=== PATIENT | female | born 1960 | race Caucasian/White ===

== ENCOUNTER 2017-09-08 18:10 | Emergency (ER) | payer OTHER ==
[~2017-09-08] VITALS: Ht 175.3 cm; Wt 122.5 kg
[~2017-09-08 18:10] MED LIST: ACYC800 PO; ALBU90OI INH; ALBU90OI6 INH; AMOCLA875 PO; AMOX500 PO; ANTOXYBENA OT; ATOR10; ATOR20 PO; AZIT250 PO; CLON.5; CLON.5 PO; CYCL10 PO; DEXGUASY PO; FLUO10; FLUO20 PO; HYDACE5 PO; HYDACE5325 PO; IBUP800 PO; LEVSOD100 PO; LEVSOD125 PO; LEVSOD75 PO; NAPR500 PO; NEOPOLHCSU OT; OXYACE5T PO; PARO20 PO; PENVK500 PO; Prozac40 MG PO; RXHYDACE PO; SERT25; SIMV5 PO; SIMV80 PO; THYROID MED
[2017-09-08 18:49] LABS: BASOPHILS ABSOLUTE AUTO 0.06 K/mm3 (0.00-0.23); BASOPHILS PERCENT AUTO 1 % (0-2); EOSINOPHILS ABSOLUTE AUTO 0.22 K/mm3 (0.00-0.68); EOSINOPHILS PERCENT AUTO 2 % (0-6); Hemoglobin 13.9 g/dL (11.5-16.0); IMMATURE GRAN ABSOLUTE AUTO 0.03 K/mm3 (0.00-0.10); IMMATURE GRAN PERCENT AUTO 0 % (0-1); LYMPHOCYTES ABSOLUTE AUTO 2.88 K/mm3 (0.84-5.20); LYMPHOCYTES PERCENT AUTO 29 % (21-46); MONOCYTES ABSOLUTE AUTO 0.42 K/mm3 (0.16-1.47); MONOCYTES PERCENT AUTO 4 % (4-13); Mean Corpuscular HGB 29.2 pg (26.0-34.0); Mean Corpuscular HGB Conc 33.1 g/dL (31.5-36.5); Mean Corpuscular Volume 88 fL (80-100); Mean Platelet Volume 9.9 fL (9.1-12.4); NEUTROPHILS ABSOLUTE AUTO 6.44 K/mm3 (1.96-9.15); NEUTROPHILS PERCENT AUTO 64 % (41-73); Platelet Count 347 K/mm3 (150-400); RDW Coefficient Variation 13.7 % (11.7-14.2); RDW Standard Deviation 44.5 fL (35.1-46.3); Red Blood Cell Count 4.76 M/mm3 (3.80-5.20); White Blood Cell Count 10.05 K/mm3 (4.00-11.30)
[2017-09-08 19:08] LABS: Troponin I <0.015 ng/mL (0.000-0.040)
[2017-09-08 19:18] LABS: Alanine Aminotransfer (ALT/SGP 25 U/L (12-78); Albumin/Globulin Ratio 0.7 (0.8-1.8); Alk Phos 79 U/L (50-136); Anion Gap 6 mmol/L (6-16); Aspartate Aminotrans (AST/SGOT 18 U/L (12-37); Bilirubin, Total 0.3 mg/dL (0.1-1.0); Blood Urea Nitrogen 12 mg/dL (8-24); Bun/Creatinine Ratio 12.6 (12.0-20.0); CO2, Blood 27 mmol/L (21-32); Calcium, Blood 9.1 mg/dL (8.5-10.1); Chloride, Blood 106 mmol/L (98-108); Creatinine, Blood 0.96 mg/dL (0.40-1.00); Globulin, Blood 4.6 g/dL (2.2-4.0); Glomerular Filtration Rate >60 (60-); Glucose, Blood 105 mg/dL (70-99); Potassium, Blood 3.6 mmol/L (3.5-5.5); Sodium, Blood 139 mmol/L (136-145); Total Protein, Blood 7.6 g/dL (6.4-8.2)
== END 2017-09-08 20:00 | disposition home or self-care (01) ==
LOC: ER 18:10
DX: R07.9 Chest pain, unspecified (principal); F17.210 Nicotine dependence, cigarettes, uncomplicated
CPT/HCPCS: 36415; 71046; 80053; 84484; 85025; 93005; 93010; 99283

== ENCOUNTER → 2019-05-20 | Outpatient (CLI) | payer OTHER | END | disposition home or self-care (01) | LOC: LAB SHORT 11:31 → PLD 11:31 | DX: C44.41 Basal cell carcinoma of skin of scalp and neck (principal); D22.4 Melanocytic nevi of scalp and neck; L98.9 Disorder of the skin and subcutaneous tissue, unspecified | CPT/HCPCS: 88305; 88313 ==

== ENCOUNTER 2021-10-01 18:32 | Emergency (ER) | payer OTHER ==
[~2021-10-01] VITALS: Ht 175.3 cm; Wt 129.3 kg
[2021-10-01 19:14] LABS: BASOPHILS ABSOLUTE AUTO 0.09 K/mm3 (0.00-0.23); BASOPHILS PERCENT AUTO 1 % (0-2); EOSINOPHILS ABSOLUTE AUTO 0.29 K/mm3 (0.00-0.68); EOSINOPHILS PERCENT AUTO 4 % (0-6); Hematocrit 46.5 % (33.0-51.0); IMMATURE GRAN ABSOLUTE AUTO 0.03 K/mm3 (0.00-0.10); IMMATURE GRAN PERCENT AUTO 0 % (0-1); LYMPHOCYTES ABSOLUTE AUTO 2.88 K/mm3 (0.84-5.20); LYMPHOCYTES PERCENT AUTO 35 % (21-46); MONOCYTES ABSOLUTE AUTO 0.48 K/mm3 (0.16-1.47); MONOCYTES PERCENT AUTO 6 % (4-13); Mean Corpuscular HGB 29.8 pg (26.0-34.0); Mean Corpuscular HGB Conc 32.3 g/dL (31.5-36.5); Mean Corpuscular Volume 92 fL (80-100); Mean Platelet Volume 9.6 fL (9.1-12.4); NEUTROPHILS PERCENT AUTO 54 % (41-73); NRBC ABSOLUTE 0.03 K/mm3 (0.00-0.02); NRBC Auto 0.4 /100 WBC (0.0-0.2); Platelet Count 350 K/mm3 (150-400); RDW Coefficient Variation 13.1 % (11.7-14.2); Red Blood Cell Count 5.04 M/mm3 (3.80-5.20); White Blood Cell Count 8.27 K/mm3 (4.00-11.30)
[2021-10-01 19:42] LABS: Albumin, Blood 2.7 g/dL (3.4-5.0); Albumin/Globulin Ratio 0.7 (0.8-1.8); Bilirubin, Total 0.3 mg/dL (0.1-1.0); Calcium, Blood 8.8 mg/dL (8.5-10.1); Creatinine, Blood 0.87 mg/dL (0.40-1.00); Globulin, Blood 4.1 g/dL (2.2-4.0); Total Protein, Blood 6.8 g/dL (6.4-8.2)
== END 2021-10-01 23:27 | disposition home or self-care (01) ==
LOC: ER 18:32
PROVIDERS: Physician Assistant
DX: H53.9 Unspecified visual disturbance (principal); H74.8X2 Other specified disorders of left middle ear and mastoid; E78.5 Hyperlipidemia, unspecified; F17.210 Nicotine dependence, cigarettes, uncomplicated; Z79.899 Other long term (current) drug therapy; Z88.8 Allergy status to other drugs, medicaments and biological substances; Z88.1 Allergy status to other antibiotic agents
CPT/HCPCS: 36415; 70450; 80053; 85025; 85651

== ENCOUNTER 2022-05-13 19:17 | Emergency (ER) | payer OTHER ==
[~2022-05-13] VITALS: Ht 175.3 cm; Wt 117.9 kg
== END 2022-05-13 21:30 | disposition home or self-care (01) ==
LOC: ER 19:17
DX: S50.11XA Contusion of right forearm, initial encounter (principal); E78.5 Hyperlipidemia, unspecified; F17.210 Nicotine dependence, cigarettes, uncomplicated; W01.0XXA Fall on same level from slipping, tripping and stumbling without subsequent striking against object, initial encounter; Z79.890 Hormone replacement therapy; Z79.899 Other long term (current) drug therapy; Z88.8 Allergy status to other drugs, medicaments and biological substances
CPT/HCPCS: 73090

== ENCOUNTER 2022-12-16 17:33 | Emergency (ER) | payer OTHER ==
[~2022-12-16] VITALS: Ht 175.3 cm; Wt 127.0 kg
[2022-12-16 17:45] VITALS: BP 160/78
[2022-12-16] MEDS ORDERED: CODACE30 PO (18:58)
== END 2022-12-16 19:28 | disposition home or self-care (01) ==
LOC: ER 17:33
DX: S82.851A Displaced trimalleolar fracture of right lower leg, initial encounter for closed fracture (principal); W10.8XXA Fall (on) (from) other stairs and steps, initial encounter; Z88.8 Allergy status to other drugs, medicaments and biological substances; Z88.1 Allergy status to other antibiotic agents; Z79.899 Other long term (current) drug therapy; E78.5 Hyperlipidemia, unspecified; F17.210 Nicotine dependence, cigarettes, uncomplicated
CPT/HCPCS: 73590; 73610; A9270; J1885

== ENCOUNTER 2022-12-20 09:58 | Day surgery (SDC) | payer OTHER ==
[~2022-12-20] VITALS: Ht 175.3 cm; Wt 127.2 kg
[~2022-12-20 09:58] MED LIST changes: +CODACE30 PO
[2022-12-20] MEDS ORDERED: Crestor40 MG ×2 (10:52→10:53)
[2022-12-20] MEDS ORDERED: VITAMIN D310 MC4 (10:53)
[2022-12-20] MEDS ORDERED: OMEP20ER (10:54)
--- NOTE | 2022-12-20 12:58 | NUR ---
12/20/22 1258 Brice Hutton POPITEAL BLOCK COMPLETE IN OR BY DR OROURKE PRIOR TO INTUBATION. PT STATES SHE TOLERATED WELL. VSS. TIME OUT COMPLETE, SITE CHECK. ROPIVICAINE 0.5% 30MLS MIXED & VERIFIED W/ EPI 0.15 ML (1MG/ML) PER ORDRE TO MAKE ROPIVACAINE 0.5% 1:200,000 FOR INJECTION AT [facility] BY DR LAZARO.
--- NOTE | 2022-12-20 14:24 | NUR ---
12/20/22 1424 Adrienne Weston PT INADVERTENTLY PULLED OUT IV, CATH INTACT, COVERED WITH GAUZE AND COBAN. PT TOLERATED EATING AND DRINKING WITH NO ISSUES. NO NAUSEA.
[2022-12-20 14:54] VITALS: BP 133/68
== END 2022-12-20 14:55 | disposition home or self-care (01) ==
LOC: ORSCSDS 09:58
PROVIDERS: Podiatrist Foot & Ankle Surgery
PROC: 0QSJ04Z Reposition Right Fibula with Internal Fixation Device, Open Approach (ICD-10-PCS; principal; 2022-12-20 11:15)
PROC: 0QSG04Z Reposition Right Tibia with Internal Fixation Device, Open Approach (ICD-10-PCS; principal; 2022-12-20 11:15)
DX: S82.851A Displaced trimalleolar fracture of right lower leg, initial encounter for closed fracture (principal); W10.9XXA Fall (on) (from) unspecified stairs and steps, initial encounter; E66.01 Morbid (severe) obesity due to excess calories; Z68.41 Body mass index [BMI] 40.0-44.9, adult; E78.5 Hyperlipidemia, unspecified; E03.9 Hypothyroidism, unspecified; K21.9 Gastro-esophageal reflux disease without esophagitis; F41.9 Anxiety disorder, unspecified; F32.A Depression, unspecified; Z79.899 Other long term (current) drug therapy; G47.33 Obstructive sleep apnea (adult) (pediatric); F17.210 Nicotine dependence, cigarettes, uncomplicated
CPT/HCPCS: A9270; C1713; C1769; J0171; J0690; J1100; J1885; J2250; J2405; J2704; J2795; J3010; J7120

== ENCOUNTER 2022-12-24 20:00 | Emergency (ER) | payer OTHER ==
[~2022-12-24] VITALS: Ht 175.3 cm; Wt 127.0 kg
[~2022-12-24 20:00] MED LIST changes: +Crestor40 MG; +OMEP20ER; +VITAMIN D310 MC4
[2022-12-24 21:05] LABS: BASOPHILS ABSOLUTE AUTO 0.05 K/mm3 (0.00-0.23); BASOPHILS PERCENT AUTO 1 % (0-2); EOSINOPHILS ABSOLUTE AUTO 0.49 K/mm3 (0.00-0.68); EOSINOPHILS PERCENT AUTO 6 % (0-6); Hematocrit 38.6 % (33.0-51.0); Hemoglobin 12.8 g/dL (11.5-16.0); IMMATURE GRAN ABSOLUTE AUTO 0.04 K/mm3 (0.00-0.10); IMMATURE GRAN PERCENT AUTO 1 % (0-1); LYMPHOCYTES ABSOLUTE AUTO 2.01 K/mm3 (0.84-5.20); LYMPHOCYTES PERCENT AUTO 23 % (21-46); MONOCYTES ABSOLUTE AUTO 0.61 K/mm3 (0.16-1.47); MONOCYTES PERCENT AUTO 7 % (4-13); Mean Corpuscular HGB 28.1 pg (26.0-34.0); Mean Corpuscular HGB Conc 33.2 g/dL (31.5-36.5); Mean Corpuscular Volume 85 fL (80-100); Mean Platelet Volume 9.6 fL (9.1-12.4); NEUTROPHILS ABSOLUTE AUTO 5.65 K/mm3 (1.96-9.15); NEUTROPHILS PERCENT AUTO 64 % (41-73); Platelet Count 425 K/mm3 (150-400); RDW Coefficient Variation 13.4 % (11.7-14.2); RDW Standard Deviation 42.1 fL (35.1-46.3); Red Blood Cell Count 4.55 M/mm3 (3.80-5.20); White Blood Cell Count 8.85 K/mm3 (4.00-11.30)
[2022-12-24 21:27] LABS: Albumin, Blood 2.4 g/dL (3.4-5.0); Albumin/Globulin Ratio 0.5 (0.8-1.8); Bilirubin, Total 0.2 mg/dL (0.1-1.0); Bun/Creatinine Ratio 14.1 (12.0-20.0); Calcium, Blood 8.7 mg/dL (8.5-10.1); Globulin, Blood 4.8 g/dL (2.2-4.0); Total Protein, Blood 7.2 g/dL (6.4-8.2)
[2022-12-24] MEDS ORDERED: ALBU90OI INH (21:46)
[2022-12-24] MEDS ORDERED: Prednisone20 MG PO (21:46)
[2022-12-24 22:00] LABS: Influenza A, PCR NEGATIVE (NEGATIVE); Influenza B, PCR NEGATIVE (NEGATIVE); Resp Syncytial Virus, PCR NEGATIVE (NEGATIVE); SARS-Cov-2 (COVID-19) PCR, MMC NEGATIVE (NEGATIVE)
[2022-12-24 23:00] VITALS: BP 155/97
== END 2022-12-24 23:03 | disposition home or self-care (01) ==
LOC: ER 20:00
PROVIDERS: Emergency Medicine
DX: R06.02 Shortness of breath (principal); R05.9 Cough, unspecified; I51.7 Cardiomegaly; R91.8 Other nonspecific abnormal finding of lung field; E78.5 Hyperlipidemia, unspecified; F17.200 Nicotine dependence, unspecified, uncomplicated; Z20.822 Contact with and (suspected) exposure to COVID-19; Z88.1 Allergy status to other antibiotic agents; Z88.8 Allergy status to other drugs, medicaments and biological substances; Z79.899 Other long term (current) drug therapy
CPT/HCPCS: 0241U; 71046; 71260; 80053; 84484; 85025; 85379; 93005; 93010; 94640; 94664; 99285-25; Q9967

== ENCOUNTER → 2024-09-09 | Outpatient (CLI) | payer OTHER ==
[~2024-09-09] MED LIST changes: +Prednisone20 MG PO
== END | disposition home or self-care (01) ==
LOC: LAB 15:54 → LAB SHORT 15:54
DX: N39.0 Urinary tract infection, site not specified (principal)
CPT/HCPCS: 87086

== ENCOUNTER 2025-04-24 14:28 | Inpatient (IN) | payer OTHER ==
[~2025-04-24] VITALS: Ht 172.7 cm; Wt 111.6 kg
[~2025-04-24 14:28] MED LIST changes: -VITAMIN D310 MC4; +VITAMIN D310 MC4 PO
[2025-04-24] MEDS ORDERED: Ipratropium/Albuterol SulF 2.5-0.5MG/3 ML Amp INH ONE (14:55)
[2025-04-24 15:32] LABS: BASOPHILS ABSOLUTE AUTO 0.03 K/mm3 (0.00-0.23); BASOPHILS PERCENT AUTO 0 % (0-2); EOSINOPHILS ABSOLUTE AUTO 0.04 K/mm3 (0.00-0.68); EOSINOPHILS PERCENT AUTO 1 % (0-6); Hematocrit 36.9 % (33.0-51.0); Hemoglobin 11.7 g/dL (11.5-16.0); IMMATURE GRAN ABSOLUTE AUTO 0.04 K/mm3 (0.00-0.10); IMMATURE GRAN PERCENT AUTO 1 % (0-1); LYMPHOCYTES ABSOLUTE AUTO 0.79 K/mm3 (0.84-5.20); LYMPHOCYTES PERCENT AUTO 10 % (21-46); MONOCYTES ABSOLUTE AUTO 0.23 K/mm3 (0.16-1.47); MONOCYTES PERCENT AUTO 3 % (4-13); Mean Corpuscular HGB Conc 31.7 g/dL (31.5-36.5); Mean Corpuscular Volume 81 fL (80-100); NEUTROPHILS ABSOLUTE AUTO 7.02 K/mm3 (1.96-9.15); NEUTROPHILS PERCENT AUTO 86 % (41-73); NRBC ABSOLUTE 0.00 K/mm3 (0.00-0.02); NRBC Auto 0.0 /100 WBC (0.0-0.2); Platelet Count 370 K/mm3 (150-400); RDW Coefficient Variation 13.8 % (11.7-14.2); RDW Standard Deviation 40.7 fL (35.1-46.3)
[2025-04-24 15:35] LABS: pH Blood Arterial 7.38 (7.35-7.45)
[2025-04-24 15:40] LABS: Anion Gap 6.0 mmol/L (3-11); Blood Urea Nitrogen 13.0 mg/dL (8-24); CO2, Blood 29.0 mmol/L (21-32); Calcium, Blood 8.9 mg/dL (8.5-10.1); Chloride, Blood 103.0 mmol/L (98-108); Creatinine, Blood 0.81 mg/dL (0.40-1.00); Glucose, Blood 126.0 mg/dL (70-99); Potassium, Blood 4.2 mmol/L (3.5-5.5); Sodium, Blood 134.0 mmol/L (136-145)
[2025-04-24 15:54] LABS: Influenza A, PCR NEGATIVE (NEGATIVE); Influenza B, PCR NEGATIVE (NEGATIVE); Resp Syncytial Virus, PCR NEGATIVE (NEGATIVE); SARS-Cov-2 (COVID-19) PCR, MMC NEGATIVE (NEGATIVE)
[2025-04-24] MEDS ORDERED: Ondansetron HCl 2 MG / ML 2ML Vial IV PRN (17:00)
[2025-04-24] MEDS ORDERED: FLU VACC TS2025-26(6MOS UP)/PF 45 MCG/0.5 ML SYRINGE IM SCH (17:00)
[2025-04-24] MEDS ORDERED: Ipratropium/Albuterol SulF 2.5-0.5MG/3 ML Amp INH PRN (17:00)
[2025-04-24] MEDS ORDERED: CefTRIAXone Sodium 1,000 MG in NS 100 ML IV SCH (17:01)
[2025-04-24] MEDS ORDERED: ROSUVASTATIN CA40 MG PO ×2 (17:30)
[2025-04-24] MEDS ORDERED: NEURONTIN300 MG PO ×2 (17:32)
[2025-04-24] MEDS ORDERED: EUTHYROX150 MC1 PO ×2 (17:34)
[2025-04-24 17:53] LABS: Magnesium, Blood 2.0 mg/dL (1.6-2.4)
[2025-04-24 17:59] LABS: Alanine Aminotransfer (ALT/SGP 34 U/L (12-78); Albumin, Blood 2.3 g/dL (3.4-5.0); Albumin/Globulin Ratio 0.4 (0.8-1.8); Aspartate Aminotrans (AST/SGOT 31 U/L (12-37); Bilirubin, Direct <0.1 mg/dL (0.0-0.3); Bilirubin, Indirect Unable to Calculate mg/dL (0.1-0.7); Bilirubin, Total 0.2 mg/dL (0.1-1.0); Globulin, Blood 5.3 g/dL (2.2-4.0); Phosphorus, Blood 3.3 mg/dL (2.5-4.9); Total Protein, Blood 7.6 g/dL (6.4-8.2)
[2025-04-24] MEDS ORDERED: Doxycycline Hyclate 100 MG in Dextrose 5% 250 ML IV SCH (18:00)
[2025-04-24] MEDS ORDERED: Enoxaparin 40 MG/0.4 ML SYR SC SCH (19:00)
--- NOTE | 2025-04-24 19:08 | NUR ---
CALLED AND RECIEVED REPORT FROM PRASANNA GARRETT ON PT COMING TO ROOM 355. AWAITING PT ARRIVAL.
[2025-04-24 19:37] VITALS: BP 152/72
[2025-04-24] MEDS ORDERED: FENO48 PO ×2 (19:45)
[2025-04-24] MEDS ORDERED: LOSA25 PO ×2 (19:47)
--- NOTE | 2025-04-24 21:47 | NUR ---
ADMISSION NOTE PT ARRIVED TO ROOM 355 VIA W/C FROM THE ED. PT AMBULATED TO HOSPITAL BED. PT ARRIVED WITH 3L NC IN PLACE ATING >92%. PT IS A&OX4, OREINTED TO STAFF, CALL LIGHT, AND ROOM. PTs IS AT BEDSIDE. PT IS RESTING IN BED WITH EVEN AND UNLABORED RESPIRATIONS, BED IN THE LOWEST POSITION, AND CALL LIGHT WITHIN REACH.
[2025-04-24 23:51] VITALS: BP 196/94
--- NOTE | 2025-04-25 00:03 | NUR ---
PROVIDER NOTIFIED PT HYPERTENSIVE VERBAL ORDER AT BEDSIDE 25MG LOSARTAN NOW THEN Q DAY
[2025-04-25 04:08] VITALS: BP 170/87
--- NOTE | 2025-04-25 05:04 | NUR ---
SHIFT SUMMARY PT IS A&OX4, PLEASANT AND COOPERATIVE WITH CARE. PT ADMITTED FROM THE ER FOR PNEUMONIA. PT IS ON 3L NC SATING >92%. PT REPORTS SOB WITH EXERTION. PTs BP HIGH 25MG OF LOSARTAN GIVEN A ONE TIME DOSE THEN TO RESUME IN THE AM. PT REPORTS THEY HAVE NOT TAKEN BP MEDS IN AWHILE . NO OTHER ACUTE CHANGES THIS SHIFT. PTs AT BEDSIDE T/O SHIFT. PT RESTED WITH EVEN AND UNLABORED RESPIRATIONS, BED IN THE LOWEST POSITION, AND CALL LIGHT WITHIN REACH.
[2025-04-25] MEDS ORDERED: Levothyroxine Sodium 0.15 MG Tab PO SCH (06:00)
[2025-04-25 06:17] LABS: BASOPHILS ABSOLUTE AUTO 0.02 K/mm3 (0.00-0.23); BASOPHILS PERCENT AUTO 0 % (0-2); EOSINOPHILS ABSOLUTE AUTO 0.00 K/mm3 (0.00-0.68); EOSINOPHILS PERCENT AUTO 0 % (0-6); Hematocrit 40.3 % (33.0-51.0); Hemoglobin 12.2 g/dL (11.5-16.0); IMMATURE GRAN ABSOLUTE AUTO 0.04 K/mm3 (0.00-0.10); IMMATURE GRAN PERCENT AUTO 1 % (0-1); LYMPHOCYTES ABSOLUTE AUTO 1.06 K/mm3 (0.84-5.20); LYMPHOCYTES PERCENT AUTO 13 % (21-46); MONOCYTES ABSOLUTE AUTO 0.30 K/mm3 (0.16-1.47); MONOCYTES PERCENT AUTO 4 % (4-13); Mean Corpuscular HGB Conc 30.3 g/dL (31.5-36.5); Mean Corpuscular Volume 83 fL (80-100); NEUTROPHILS ABSOLUTE AUTO 6.86 K/mm3 (1.96-9.15); NEUTROPHILS PERCENT AUTO 83 % (41-73); NRBC ABSOLUTE 0.00 K/mm3 (0.00-0.02); NRBC Auto 0.0 /100 WBC (0.0-0.2); Platelet Count 456 K/mm3 (150-400); RDW Coefficient Variation 14.0 % (11.7-14.2); RDW Standard Deviation 42.7 fL (35.1-46.3)
[2025-04-25 07:08] LABS: Alanine Aminotransfer (ALT/SGP 42.0 U/L (12-78); Albumin, Blood 2.3 g/dL (3.4-5.0); Albumin/Globulin Ratio 0.4 (0.8-1.8); Anion Gap 7.0 mmol/L (3-11); Aspartate Aminotrans (AST/SGOT 36.0 U/L (12-37); Bilirubin, Total 0.2 mg/dL (0.1-1.0); Blood Urea Nitrogen 16.0 mg/dL (8-24); CO2, Blood 31.0 mmol/L (21-32); Calcium, Blood 9.1 mg/dL (8.5-10.1); Chloride, Blood 103.0 mmol/L (98-108); Creatinine, Blood 0.87 mg/dL (0.40-1.00); Globulin, Blood 5.5 g/dL (2.2-4.0); Glucose, Blood 132.0 mg/dL (70-99); Potassium, Blood 4.3 mmol/L (3.5-5.5); Sodium, Blood 137.0 mmol/L (136-145); Total Protein, Blood 7.8 g/dL (6.4-8.2)
[2025-04-25 07:34] VITALS: BP 172/91
[2025-04-25] MEDS ORDERED: NS 250 ML IV PRN (08:50)
--- NOTE | 2025-04-25 15:13 | NUR ---
Spiritual care visit conducted. The patient is sitting up in bed and has her spouse and children bedside. She tells me, "I am falling apart or at least that is what I am told." Her family agree with the assesment and then the patient tells me a robust list of medical problems. The patient exclaims that she has connections with God and that she is going to be alright. I support her ana and provided a welcomed prayer. They all graciously thak me stopping in the room and show signs of improved spirits.
[2025-04-25 16:00] VITALS: BP 145/81
[2025-04-25] MEDS ORDERED: Ipratropium/Albuterol SulF 2.5-0.5MG/3 ML Amp INH SCH (16:00)
--- NOTE | 2025-04-25 16:10 | NUR ---
PALLIATIVE CARE CONSULT RECEIVED, PHYSICIAN REQUESTS ADVANCED CARE PLANNING, PT HAS NO POLST OR ADVANCE DIRECTIVE. PLAN TO MEET WITH PT TOMORROW.
--- NOTE | 2025-04-25 17:07 | NUR ---
SHIFT SUMMARY PT IS A/OX4. ON 3L NC, SATS >90%. PT REPORTS RA AT BASELINE. DR CRAWFORD AT BEDSIDE THIS AFTERNOON TO DISCUSS LUNG AND ADRENAL MASSES AND PLAN FOR PET SCAN OUTPATIENT AFTER DISCHARGE. PT REMAINS VERY WHEEZY, THOUGH REPORTS IMPROVEMENT IN SOB. SBA TO BATHROOM. FAMILY AT BEDSIDE THROUGHOUT THIS SHIFT.
[2025-04-25 19:43] VITALS: BP 148/74
[2025-04-25 23:46] VITALS: BP 158/89
[2025-04-26 02:29] VITALS: BP 170/74
[2025-04-26 05:19] LABS: BASOPHILS ABSOLUTE AUTO 0.02 K/mm3 (0.00-0.23); BASOPHILS PERCENT AUTO 0 % (0-2); EOSINOPHILS ABSOLUTE AUTO 0.00 K/mm3 (0.00-0.68); EOSINOPHILS PERCENT AUTO 0 % (0-6); Hematocrit 37.2 % (33.0-51.0); Hemoglobin 11.5 g/dL (11.5-16.0); IMMATURE GRAN ABSOLUTE AUTO 0.04 K/mm3 (0.00-0.10); IMMATURE GRAN PERCENT AUTO 0 % (0-1); LYMPHOCYTES ABSOLUTE AUTO 0.69 K/mm3 (0.84-5.20); LYMPHOCYTES PERCENT AUTO 8 % (21-46); MONOCYTES ABSOLUTE AUTO 0.29 K/mm3 (0.16-1.47); MONOCYTES PERCENT AUTO 3 % (4-13); Mean Corpuscular HGB Conc 30.9 g/dL (31.5-36.5); Mean Corpuscular Volume 84 fL (80-100); NEUTROPHILS ABSOLUTE AUTO 7.91 K/mm3 (1.96-9.15); NEUTROPHILS PERCENT AUTO 89 % (41-73); NRBC ABSOLUTE 0.00 K/mm3 (0.00-0.02); NRBC Auto 0.0 /100 WBC (0.0-0.2); Platelet Count 357 K/mm3 (150-400); RDW Coefficient Variation 14.0 % (11.7-14.2); RDW Standard Deviation 42.6 fL (35.1-46.3)
[2025-04-26 06:29] LABS: Anion Gap 7.0 mmol/L (3-11); Blood Urea Nitrogen 26.0 mg/dL (8-24); CO2, Blood 33.0 mmol/L (21-32); Calcium, Blood 8.9 mg/dL (8.5-10.1); Chloride, Blood 104.0 mmol/L (98-108); Creatinine, Blood 0.94 mg/dL (0.40-1.00); Glucose, Blood 136.0 mg/dL (70-99); Potassium, Blood 4.6 mmol/L (3.5-5.5); Sodium, Blood 139.0 mmol/L (136-145)
[2025-04-26 07:23] VITALS: BP 188/90
--- NOTE | 2025-04-26 08:05 | NUR ---
SHIFT SUMMARY; PT A/OX4 AND IS INDEPENDENT WITHIN THE ROOM. FAMILY MEMBER AT BEDSIDE DURING SHIFT. EXPIRATORY WHEEZE HEARD UPON AUSCULTATION OF LUNGS, WELL AUDIBLE WHEEZE. RT AT BEDSIDE THROUGH OUT SHIFT. SEE ASSESSMENT NOTES. PT SET UP ON CPAP PER REQUEST SHE USES ONE AT HOME WHILE SLEEPING. PT ON 3 L NC WHILE AWAKE. AFTER BREATHING TXS, THIS AM, EXPIRATORY WHEEZE STILL AUSCULTATED WITH ALL LUNG HENDRICKSON, HOWEVER AUDIBLE WHEEZE HAS CEASED. PT'S BLOOD PRESSURES HYPERTENSIVE THROUGH OUT THE NIGHT. SPOKE WITH CHARGE ABOUT BLOOD PRESSURE READINGS AND DECISION TO KEEP MONITORING MADE, OTHERWISE VSS. BED IN LOWEST POSITION AND CALL LIGHT WITHIN REACH.
[2025-04-26] MEDS ORDERED: Enoxaparin 40 MG/0.4 ML SYR SC SCH (09:00)
[2025-04-26 11:21] VITALS: BP 158/78
[2025-04-26] MEDS ORDERED: Albuterol 2.5 MG/3 ML VIAL INH PRN (13:25)
[2025-04-26 15:16] VITALS: BP 183/85
--- NOTE | 2025-04-26 16:23 | NUR ---
LATE ENTRY FOR 1320 PT CALLED AND REPORTED FEELING SHAKEY AND SHORT OF BREATH. STATED SHE HAS ANXIETY BUT NOT SURE WHY SHE IS HAVING THESE SYMPTOM. LISTENED TO HER LUNGS AND SHE HAD WHEEZES. CALLED AND SPOKE WITH DR. HARLEY ABOUT HOW PT IS FEELING AND ALBUTEROL NEBULIZER ORDERED. CLONIPIN GIVEN WELL TO EASE ANY POSSBLE RELATED ANXIETY. PT AGREEABLE TO PLAN. NOTIFIED PRIMARY RN UPON RETURN FROM LUNCH.
[2025-04-26 19:32] VITALS: BP 171/73
--- NOTE | 2025-04-26 19:41 | NUR ---
SHIFT SUMMARY PT A&OX4, VSS, NON-TELE, WEANED FROM 3L O2 TO 2L. IND IN ROOM. BLOOD PRESSURES HIGH. PT HOPING TO DISCHARGE TOMORROW. PT PLEASANT AND COOPERATIVE WITH ALL CARE, CALL LIGHT IN REACH.
[2025-04-27 04:07] VITALS: BP 182/78
[2025-04-27 05:17] LABS: BASOPHILS ABSOLUTE AUTO 0.01 K/mm3 (0.00-0.23); BASOPHILS PERCENT AUTO 0 % (0-2); EOSINOPHILS ABSOLUTE AUTO 0.01 K/mm3 (0.00-0.68); EOSINOPHILS PERCENT AUTO 0 % (0-6); Hematocrit 38.7 % (33.0-51.0); Hemoglobin 11.7 g/dL (11.5-16.0); IMMATURE GRAN ABSOLUTE AUTO 0.10 K/mm3 (0.00-0.10); IMMATURE GRAN PERCENT AUTO 1 % (0-1); LYMPHOCYTES ABSOLUTE AUTO 0.85 K/mm3 (0.84-5.20); LYMPHOCYTES PERCENT AUTO 9 % (21-46); MONOCYTES ABSOLUTE AUTO 0.30 K/mm3 (0.16-1.47); MONOCYTES PERCENT AUTO 3 % (4-13); Mean Corpuscular HGB Conc 30.2 g/dL (31.5-36.5); Mean Corpuscular Volume 83 fL (80-100); NEUTROPHILS ABSOLUTE AUTO 8.63 K/mm3 (1.96-9.15); NEUTROPHILS PERCENT AUTO 87 % (41-73); NRBC ABSOLUTE 0.00 K/mm3 (0.00-0.02); NRBC Auto 0.0 /100 WBC (0.0-0.2); Platelet Count 365 K/mm3 (150-400); RDW Coefficient Variation 14.0 % (11.7-14.2); RDW Standard Deviation 42.1 fL (35.1-46.3)
[2025-04-27 05:50] LABS: Anion Gap 8.0 mmol/L (3-11); Blood Urea Nitrogen 26.0 mg/dL (8-24); CO2, Blood 31.0 mmol/L (21-32); Calcium, Blood 9.3 mg/dL (8.5-10.1); Chloride, Blood 103.0 mmol/L (98-108); Creatinine, Blood 0.82 mg/dL (0.40-1.00); Glucose, Blood 146.0 mg/dL (70-99); Potassium, Blood 4.5 mmol/L (3.5-5.5); Sodium, Blood 137.0 mmol/L (136-145)
--- NOTE | 2025-04-27 06:24 | NUR ---
A/Ox4, ELEVATED SBP, OTHER VSS ON 2L. CPAP USED OVERNIGHT. PT REPORTS FEELING BETTER, MOIST OCCASIONAL COUGH PERSISTS. NO ACUTE CHANGES OVERNIGHT. ROOMING IN. SAFETY PRECAUTIONS IN PLACE, CALL LIGHT IN REACH.
[2025-04-27 07:34] VITALS: BP 194/95
--- NOTE | 2025-04-27 13:07 | NUR ---
NOTE: CALLED DR. PRINCE D/T PATIENT COMPLAINING OF PERSISTANT COUGH THAT HAS BEEN BOTHERING HER SENSE THIS EARLY AM. DOCTOR HAS REQUESTED WE DO NOT GIVE ANY COUGH SUPPRESSANTS. DR. PRINCE TO COME AND EDUCTE PATIENT ON THIS SUBJECT.
[2025-04-27 15:22] VITALS: BP 187/83
--- NOTE | 2025-04-27 15:30 | NUR ---
FAMILY MEETING THIS AFTERNOON. PT, SPOUSE, DTR AND GDTR PRESENT. PT REPORTS ANXIETY AND ASKS MULTIPULE TIMES, "AM I DYING?". THIS PC RN PROVIDED THERAPUTIC LISTENING WITH SPECIAL ATTENTION TO PT'S CONCERNS WITH NEW DX: COPD. SHE DENIES EVER BEING GIVEN A DX OF COPD. HOWEVER, 'S CONSULT INDICATED TX FOR COPD EXACERBATION 01/10/23. NEW NODULES: RML 9X18, ADRENAL MASS, HILAR LYMPHADENOPATHY. PT AND SPOUSE VERBALIZE UNDERSTANDING THE IMPORTANCE OF OBTAINING A NEW PCP, FOLLOW UP WITH AND PET SCAN. PROVIDED ADVANCE DIRECTIVES AND EDUCATION ON HOW TO FILL OUT. PC TO REMAIN AVAILABLE NEEDED.
[2025-04-27 15:53] VITALS: BP 170/88
[2025-04-27 17:14] VITALS: BP 121/71
--- NOTE | 2025-04-27 18:33 | NUR ---
SHIFT SUMMARY: PATIENT A+O X3 AND ABLE TO MAKE NEEDS KNOWN. LUNGS STILL HAVE SUBTLE WHEEZE BL. DR. PRINCE CONTACTED A FEW TIMES TODAY FOR HTN MANAGEMENT. LOSARTAN DOSE CHANGED FROM 25MG TO 50MG. METOPROLOL STARTED THIS SHIFT. BLOOD PRESSURES HAVE INPROVED D/T THESE CHANGES. PATIENT IS NOTED TO HAVE ANXIETY AND NOT EXPRESS THAT SHE IS ANXIOUS. PLAN TO DISCHARGE TOMORROW ONCE STABLE. WILL REPORT TO ONCOMING NURSE.
[2025-04-27 19:38] VITALS: BP 168/85
[2025-04-28 02:52] VITALS: BP 152/85
[2025-04-28 04:57] LABS: BASOPHILS ABSOLUTE AUTO 0.02 K/mm3 (0.00-0.23); BASOPHILS PERCENT AUTO 0 % (0-2); EOSINOPHILS ABSOLUTE AUTO 0.13 K/mm3 (0.00-0.68); EOSINOPHILS PERCENT AUTO 1 % (0-6); Hematocrit 38.3 % (33.0-51.0); Hemoglobin 11.9 g/dL (11.5-16.0); IMMATURE GRAN ABSOLUTE AUTO 0.13 K/mm3 (0.00-0.10); IMMATURE GRAN PERCENT AUTO 1 % (0-1); LYMPHOCYTES ABSOLUTE AUTO 1.13 K/mm3 (0.84-5.20); LYMPHOCYTES PERCENT AUTO 11 % (21-46); MONOCYTES ABSOLUTE AUTO 0.52 K/mm3 (0.16-1.47); MONOCYTES PERCENT AUTO 5 % (4-13); Mean Corpuscular HGB Conc 31.1 g/dL (31.5-36.5); Mean Corpuscular Volume 82 fL (80-100); NEUTROPHILS ABSOLUTE AUTO 8.67 K/mm3 (1.96-9.15); NEUTROPHILS PERCENT AUTO 82 % (41-73); NRBC ABSOLUTE 0.00 K/mm3 (0.00-0.02); NRBC Auto 0.0 /100 WBC (0.0-0.2); Platelet Count 352 K/mm3 (150-400); RDW Coefficient Variation 14.1 % (11.7-14.2); RDW Standard Deviation 41.6 fL (35.1-46.3)
[2025-04-28 05:22] LABS: Anion Gap 6.0 mmol/L (3-11); Blood Urea Nitrogen 27.0 mg/dL (8-24); CO2, Blood 34.0 mmol/L (21-32); Calcium, Blood 9.0 mg/dL (8.5-10.1); Chloride, Blood 102.0 mmol/L (98-108); Creatinine, Blood 0.82 mg/dL (0.40-1.00); Glucose, Blood 136.0 mg/dL (70-99); Potassium, Blood 5.0 mmol/L (3.5-5.5); Sodium, Blood 137.0 mmol/L (136-145)
--- NOTE | 2025-04-28 06:07 | NUR ---
A/Ox4, VSS ON 2L BY NC OR CPAP. SPO2 MAINTAINED AT 90% ON RA, FOR 20 MIN, WHILE SITTING UPRIGHT IN BED. INTERMITTENT COUGH. PT DENIES PAIN, NAUSEA, ANXIETY, SOB. NO ACUTE CHANGES OVERNIGHT. SPOUSE ROOMING IN. SAFETY PRECAUTIONS IN PLACE, CALL LIGHT IN REACH.
[2025-04-28 07:42] VITALS: BP 199/86
[2025-04-28] MEDS ORDERED: Lactobacil 2-S.Thermo-Bifido 1 1 Cap PO SCH (09:00)
--- NOTE | 2025-04-28 09:00 | NUR ---
pt laying in bed with eyes closed, wakes easily spouce at bedside, a/ox4, cooperative with care, follows commands well, denies pain, lungs have insp/exp wheezing t/o, currently on 2 liters 02 via n/c, no cough noted, sats 94%, hrr, no edema noted, ppp+2, cap refill<3 sec, vs stable, afebrile, piv sites are clear and patent, btx4, abd flat soft nontender, voids without diff, skin c/w/d, candy, jaya, up to bathroom indep, jaya, call light in reach.
[2025-04-28 09:15] VITALS: BP 138/71
--- NOTE | 2025-04-28 12:21 | NUR ---
SUPPORTIVE VISIT THIS MORNING. PT REPORTS FEELING BETTER THIS MORNING. ANNIKA IS A/O X4. ACTIVELY ENGAUGES IN CONVERSATION AND ASKS APPROPRIATE QUESTIONS RE: HER HEALTH AND FUTURE CARE PLANS. PROVIDED PT/SPOUSE WITH A LIST OF PCP'S ACCEPTING NEW CLIENTS. THE HAVE CHOSEN TO FOLLOW DR. ROLDAN TO [facility]. SHIVAM KONG TO CALL AND SCHEDULE FOLLOW UP VISIT FOR NEXT WEEK. LUANN REPORTS WORKING WITH [employer] TO OBTAIN A NEW CPAP WITH O2 BLEED IN PRIOR TO PT D/C HOME. PC TO REMAIN AVAILABLE NEEDED.
[2025-04-28 15:05] VITALS: BP 142/69
[2025-04-28] MEDS ORDERED: AMLO5 PO ×2 (15:12)
[2025-04-28] MEDS ORDERED: IPRAT-ALBUT 0.5-3 ML INH ×2 (15:14)
[2025-04-28] MEDS ORDERED: Prednisone10 MG PO ×2 (15:16)
[2025-04-28] MEDS ORDERED: NICO21TP TOP ×2 (15:17)
[2025-04-28] MEDS ORDERED: NICOTINE GUM2 M1 PO ×2 (15:17)
[2025-04-28] MEDS ORDERED: DULERA INH ×2 (15:18)
[2025-04-28] MEDS ORDERED: SPIRIVA RESPIMAT4 G3 INH ×2 (15:19)
--- NOTE | 2025-04-28 15:58 | NUR ---
PATIENT DISCHARGED TO [facility] VIA WHEEL CHAIR.FAMILY PRESENT. PATIENT VERBALIZED DC INSTRUCTIONS. IV DC'D INTACT PRIOR TO PATIENT LEAVING.
--- NOTE | 2025-04-28 16:04 | NUR ---
DISCHARGE REVIEWED WITH PT AND SPOUSE. PT [id number] UNDERSTANDING MEDS AND INST. O2 HERE FOR PT. IV AND TELE REMOVED BY AIDE. PT WHEELED TO DOOR AT 1605
== END 2025-04-28 16:03 | disposition home or self-care (01) | DRG 189 ==
LOC: ER 14:28 → MEDS 16:37 → ENPENDDIS 04-28 13:30 → MEDS 04-28 16:03
PROVIDERS: Emergency Medicine; Student in an Organized Health Care Education/Training Program; ADMIT Internal Medicine
PROC: 4A033R1 Measurement of Arterial Saturation, Peripheral, Percutaneous Approach (ICD-10-PCS; principal; 2025-04-24)
PROC: 5A09357 Assistance with Respiratory Ventilation, Less than 24 Consecutive Hours, Continuous Positive Airway Pressure (ICD-10-PCS; 2025-04-26)
DX: J96.01 Acute respiratory failure with hypoxia (principal); J44.1 Chronic obstructive pulmonary disease with (acute) exacerbation; E87.1 Hypo-osmolality and hyponatremia; F41.9 Anxiety disorder, unspecified; I25.10 Atherosclerotic heart disease of native coronary artery without angina pectoris; I10 Essential (primary) hypertension; E78.5 Hyperlipidemia, unspecified; E03.9 Hypothyroidism, unspecified; R79.1 Abnormal coagulation profile; R91.1 Solitary pulmonary nodule; R59.0 Localized enlarged lymph nodes; E27.9 Disorder of adrenal gland, unspecified; K21.9 Gastro-esophageal reflux disease without esophagitis; F17.210 Nicotine dependence, cigarettes, uncomplicated; Z79.890 Hormone replacement therapy; Z88.8 Allergy status to other drugs, medicaments and biological substances; Z87.01 Personal history of pneumonia (recurrent); Z79.52 Long term (current) use of systemic steroids
CPT/HCPCS: 36415; 36600; 71045; 71260; 80048; 80053; 80076; 82803; 83605; 83735; 83880; 84100; 84484; 85025; 85379; 87040; 87070; 87205; 87637; 93005; 93010; 94640; 94660; 94664; 94760; 94761; 94762; 96374; 99285-25; A9270; J0696; J1650; J2919; J7050; J7060; Q9967

== ENCOUNTER 2025-04-30 22:35 | Emergency (ER) | payer OTHER ==
[~2025-04-30] VITALS: Ht 175.3 cm; Wt 122.5 kg
[~2025-04-30 22:35] MED LIST changes: +AMLO5 PO; +DULERA INH; +EUTHYROX150 MC1 PO; +FENO48 PO; +IPRAT-ALBUT 0.5-3 ML INH; +LOSA25 PO; +NEURONTIN300 MG PO; +NICO21TP TOP; +NICOTINE GUM2 M1 PO; +Prednisone10 MG PO; +ROSUVASTATIN CA40 MG PO; +SPIRIVA RESPIMAT4 G3 INH
[2025-04-30 23:10] LABS: BASOPHILS ABSOLUTE AUTO 0.06 K/mm3 (0.00-0.23); BASOPHILS PERCENT AUTO 1 % (0-2); EOSINOPHILS ABSOLUTE AUTO 0.69 K/mm3 (0.00-0.68); EOSINOPHILS PERCENT AUTO 6 % (0-6); Hematocrit 36.3 % (33.0-51.0); Hemoglobin 11.1 g/dL (11.5-16.0); IMMATURE GRAN ABSOLUTE AUTO 0.09 K/mm3 (0.00-0.10); IMMATURE GRAN PERCENT AUTO 1 % (0-1); LYMPHOCYTES ABSOLUTE AUTO 1.68 K/mm3 (0.84-5.20); LYMPHOCYTES PERCENT AUTO 14 % (21-46); MONOCYTES ABSOLUTE AUTO 0.56 K/mm3 (0.16-1.47); MONOCYTES PERCENT AUTO 5 % (4-13); Mean Corpuscular HGB Conc 30.6 g/dL (31.5-36.5); Mean Corpuscular Volume 83 fL (80-100); NEUTROPHILS ABSOLUTE AUTO 8.80 K/mm3 (1.96-9.15); NEUTROPHILS PERCENT AUTO 74 % (41-73); NRBC ABSOLUTE 0.00 K/mm3 (0.00-0.02); NRBC Auto 0.0 /100 WBC (0.0-0.2); Platelet Count 246 K/mm3 (150-400); RDW Coefficient Variation 14.4 % (11.7-14.2); RDW Standard Deviation 43.5 fL (35.1-46.3)
[2025-04-30 23:27] LABS: Alanine Aminotransfer (ALT/SGP 51.0 U/L (12-78); Albumin, Blood 1.9 g/dL (3.4-5.0); Albumin/Globulin Ratio 0.4 (0.8-1.8); Anion Gap 8.0 mmol/L (3-11); Aspartate Aminotrans (AST/SGOT 25.0 U/L (12-37); Bilirubin, Total 0.3 mg/dL (0.1-1.0); Blood Urea Nitrogen 28.0 mg/dL (8-24); CO2, Blood 30.0 mmol/L (21-32); Calcium, Blood 8.5 mg/dL (8.5-10.1); Chloride, Blood 100.0 mmol/L (98-108); Creatinine, Blood 1.02 mg/dL (0.40-1.00); Globulin, Blood 4.6 g/dL (2.2-4.0); Glucose, Blood 133.0 mg/dL (70-99); Potassium, Blood 4.0 mmol/L (3.5-5.5); Sodium, Blood 134.0 mmol/L (136-145); Total Protein, Blood 6.5 g/dL (6.4-8.2)
[2025-05-01] MEDS ORDERED: Ipratropium/Albuterol SulF 2.5-0.5MG/3 ML Amp INH ONE (00:10)
[2025-05-01 01:28] VITALS: BP 134/68
[2025-05-01] MEDS ORDERED: Prednisone20 MG PO (01:34)
== END 2025-05-01 01:45 | disposition home or self-care (01) ==
LOC: ER 22:35
PROVIDERS: Physician Assistant
DX: J44.1 Chronic obstructive pulmonary disease with (acute) exacerbation (principal); J18.9 Pneumonia, unspecified organism; E78.5 Hyperlipidemia, unspecified; K21.9 Gastro-esophageal reflux disease without esophagitis; F17.210 Nicotine dependence, cigarettes, uncomplicated
CPT/HCPCS: 71046; 80053; 83880; 84484; 85025; 96374; 99284-25; J2919

== ENCOUNTER 2025-05-15 14:50 | Emergency (ER) | payer OTHER ==
[~2025-05-15] VITALS: Ht 175.3 cm; Wt 106.1 kg
[2025-05-15 15:21] LABS: BASOPHILS ABSOLUTE AUTO 0.05 K/mm3 (0.00-0.23); BASOPHILS PERCENT AUTO 1 % (0-2); EOSINOPHILS ABSOLUTE AUTO 0.37 K/mm3 (0.00-0.68); EOSINOPHILS PERCENT AUTO 5 % (0-6); Hematocrit 30.7 % (33.0-51.0); Hemoglobin 9.5 g/dL (11.5-16.0); IMMATURE GRAN ABSOLUTE AUTO 0.03 K/mm3 (0.00-0.10); IMMATURE GRAN PERCENT AUTO 0 % (0-1); LYMPHOCYTES ABSOLUTE AUTO 1.26 K/mm3 (0.84-5.20); LYMPHOCYTES PERCENT AUTO 16 % (21-46); MONOCYTES ABSOLUTE AUTO 0.54 K/mm3 (0.16-1.47); MONOCYTES PERCENT AUTO 7 % (4-13); Mean Corpuscular HGB Conc 30.9 g/dL (31.5-36.5); Mean Corpuscular Volume 82 fL (80-100); NEUTROPHILS ABSOLUTE AUTO 5.56 K/mm3 (1.96-9.15); NEUTROPHILS PERCENT AUTO 71 % (41-73); NRBC ABSOLUTE 0.00 K/mm3 (0.00-0.02); NRBC Auto 0.0 /100 WBC (0.0-0.2); Platelet Count 327 K/mm3 (150-400); RDW Coefficient Variation 15.9 % (11.7-14.2); RDW Standard Deviation 47.1 fL (35.1-46.3)
[2025-05-15 15:46] LABS: Alanine Aminotransfer (ALT/SGP 59.0 U/L (12-78); Albumin, Blood 1.7 g/dL (3.4-5.0); Albumin/Globulin Ratio 0.3 (0.8-1.8); Anion Gap 7.0 mmol/L (3-11); Aspartate Aminotrans (AST/SGOT 62.0 U/L (12-37); Bilirubin, Total 0.5 mg/dL (0.1-1.0); Blood Urea Nitrogen 35.0 mg/dL (8-24); CO2, Blood 31.0 mmol/L (21-32); Calcium, Blood 9.0 mg/dL (8.5-10.1); Chloride, Blood 102.0 mmol/L (98-108); Creatinine, Blood 1.35 mg/dL (0.40-1.00); Globulin, Blood 5.7 g/dL (2.2-4.0); Glucose, Blood 110.0 mg/dL (70-99); Potassium, Blood 3.9 mmol/L (3.5-5.5); Sodium, Blood 136.0 mmol/L (136-145); Total Protein, Blood 7.4 g/dL (6.4-8.2)
[2025-05-15 21:00] VITALS: BP 116/67
== END 2025-05-15 21:53 | disposition home or self-care (01) ==
LOC: ER 14:50
PROVIDERS: Student in an Organized Health Care Education/Training Program
DX: R53.1 Weakness (principal); R03.1 Nonspecific low blood-pressure reading; E78.5 Hyperlipidemia, unspecified; E03.9 Hypothyroidism, unspecified; J44.9 Chronic obstructive pulmonary disease, unspecified; K21.9 Gastro-esophageal reflux disease without esophagitis; F17.210 Nicotine dependence, cigarettes, uncomplicated; Z88.8 Allergy status to other drugs, medicaments and biological substances; Z79.890 Hormone replacement therapy; Z79.899 Other long term (current) drug therapy
CPT/HCPCS: 70450; 80053; 85025; 93005; 93010; 99285-25